=== PATIENT | male | born 1970 ===

== ENCOUNTER 2020-06-03 09:45 | Emergency (ER) | payer OTHER ==
[~2020-06-03] VITALS: Ht 167.6 cm; Wt 88.5 kg
[2020-06-03] MEDS ORDERED: COZAAR50 MG (09:55)
[2020-06-03] MEDS ORDERED: LIPITOR20 MG (09:55)
== END 2020-06-03 14:52 | disposition home or self-care (01) ==
LOC: ER 09:45
DX: U07.1 COVID-19 (principal); R53.81 Other malaise; R53.1 Weakness